=== PATIENT | male | born 1965 ===

== ENCOUNTER → 2022-08-20 16:00 | Outpatient (CLI) | payer BC, SELFPAY ==
--- NOTE | ~2022-08-20 | MR_ITS ---
EXAMINATION: MR knee LT wo con DATE: 08/20/2022 16:30 INDICATION: Left knee pain TECHNIQUE: Magnetic resonance imaging (MRI) of the left knee was performed without intravenous contra st. Sequences included coronal PD-weighted FSE, coronal PD-weighted FS FSE, sagittal T2-weighted FSE , sagittal PD-weighted FS FSE and axial PD weighted fat saturated FSE. COMPARISON: None. FINDINGS: Medial compartment: Vertical tear tear which extends the free edge of the the junction of the body and posterior horn of the medial meniscus directly posteriorly to the periphery of the medial side of the posterior horn wi th configuration midway between radial tear and parrot beak configuration. Partial-thickness chondral fissures with scattered deep fissuring along the anterior to central weightbearing medial femoral co ndyle with mild subarticular edema-like signal change along the medial margin of the central weightbe aring medial femoral condyle. Additional deep chondral fissuring at the posterior weightbearing media l femoral condyle with tiny focus of underlying cortical irregularity and likely developing cystlike change. Diffuse partial thickness cartilage loss with smooth chondral surface along the medial tibial plateau. Subarticular edema-like signal change along the posterolateral rim of the medial tibial franchesca teau. Lateral compartment: Lateral meniscus is normal. Diffuse partial thickness cartilage loss with smooth chondral surface and without degenerative subchondral changes throughout the lateral compartment. Patellofemoral compartment: Deep chondral fissuring with mild underlying subarticular edema-like signal change at the patellar ap ical ridge and medial patellar facet. Deep chondral ulceration with underlying cortical irregularity and tiny central subchondral osteophytes at the medial trochlea, inferior aspect of the trochlear lisa ove and inferomedial aspect of the lateral trochlea. Ligaments and tendons: Anterior and posterior cruciate ligaments are normal. The medial collateral ligament and fibular kelle ateral ligament complex are normal. Mild patellar and distal quadriceps tendinopathy without tear. Th e visualized medial and lateral hamstring tendons as well as the iliotibial band are normal. Fluid: Physiologic amount of fluid in the joint space. No loose osteochondral bodies identified. Osseous/other: Bone alignment is normal. No fracture or pathologic marrow replacing process. IMPRESSION: 1. Medial meniscal tear. 2. 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 Reviewed, dictated and finalized at location A. [employer] IMPRESSION: 1. Medial meniscal tear. 2. Tricompartmental osteoarthritis, moderate severity with moderate and high-gr jake chondromalacia in the medial and patellofemoral compartments and mild with a full-thickness cartilage loss with smooth chondral surface in the lateral com partment.
== END ==
PROVIDERS: PCP Family Medicine; Visit Provider Orthopaedic Surgery Sports Medicine
DX: M25.562 Pain in left knee (principal); S83.242A Other tear of medial meniscus, current injury, left knee, initial encounter; M17.12 Unilateral primary osteoarthritis, left knee; M94.262 Chondromalacia, left knee
CPT/HCPCS: 73721